=== PATIENT | female | born 1965 | race Caucasian/White ===

== ENCOUNTER 2018-12-24 05:29 | Inpatient (IN) | payer BC ==
[~2018-12-24] VITALS: Ht 152.4 cm; Wt 104.3 kg
[~2018-12-24 05:29] MED LIST: PROAIR HFA8.5 GM INH; ZOLOFT50 MG PO
[2018-12-24 07:37] LABS: HEMATOCRIT 41.3 % (37.0-47.0)
[2018-12-24 08:29] VITALS: BP 121/68
--- NOTE | 2018-12-24 08:47 | EKG ---
[address] [address] ELECTROCARDIOGRAM REPORT Name: SHON BOYCE Room #: 150-5 ADM IN M.R.#: [id number] ������������������ Admission: 12/24/18 ������������������ Attend Phys: Danelle Gross MD, Discharge: ������������������ Date of : 69 Report #: [id number] ����������������������������������������������������������������� [id number] THIS REPORT FOR: //name// [facility] Test Date: 2018-12-24 Test Time: 07:21:03 Pat Name: SHON BOYCE Department: Room: 150 5 Gender: F Oil Speculator: RODNEY : 1965 Requested By: Danelle Gross Order Number: [id number] MD: Stanislav Walton Measurements Intervals [place] Rate: 92 P: 55 MI: 177 QRS: 33 QRSD: 85 T: 6 QT: 339 QTc: 420 Interpretive Statements Sinus rhythm Normal tracing No previous ECG available for comparison Electronically Signed On 12-24-2018 8:46:48 TRANSCRIPT EVALUATOR by Stanislav Walton [email or web address] ��������������������������������������������� <ELECTRONICALLY SIGNED> ���������������������������������������� By: Stanislav Walton MD, [facility] ��������������������������������������������� 12/24/18 0846 0721 0 Stanislav Walton MD, FACC /EPI
[2018-12-24 13:24] VITALS: BP 134/73
--- NOTE | 2018-12-24 15:44 | NUR ---
ASSUMED CARE 1300, SHIFT ASSESSMENT DONE, ON DILAUDID SALES TEAM RECRUITER PUMP, TOLERAITNG PAIN WELL. TAM IN PLACE. WILL CONTINUE TO ASSESS AND ASSIST WITH ADLs NEEDED.
[2018-12-24 15:50] VITALS: BP 129/75
--- NOTE | 2018-12-24 18:47 | NUR ---
PAIN WELL CONTROLLED WITH VASCULAR ULTRASOUND TECHNOLOGIST PUMP. TAM PRODUCED 250 MLS OF YELLOW URINE. WILL CONTINUE TO ASSESS AND MONITOR.
[2018-12-24 19:30] VITALS: BP 115/67
[2018-12-25 00:30] VITALS: BP 108/66
[2018-12-25 04:00] VITALS: BP 108/48
[2018-12-25 06:12] LABS: HEMATOCRIT 35.5 % (37.0-47.0); MCH 27.4 pg (26.0-34.0); MCHC 32.8 g/dL (28.0-37.0); MCV 83.4 fL (80.0-100.0); RBC 4.25 mil/uL (4.20-5.00); RDW 13.5 % (10.5-14.5); WBC 12.5 thou/uL (4.0-11.0)
[2018-12-25 06:14] LABS: HEMOGLOBIN 11.6 gm/dL (12.0-15.0)
[2018-12-25 06:19] LABS: CALCIUM 8.9 mg/dL (8.5-10.1); CREATININE 0.8 mg/dL (0.6-1.0); POTASSIUM 4.6 mmol/L (3.5-5.1)
--- NOTE | 2018-12-25 06:27 | NUR ---
PT USING DIULADID TAPPER SHANK PUMP AND REPORTS FAIR RELIEF OF PAIN. AFEBRILE. LAP SITES LOOK OKAY. TAM TO D/D WITH GOOD U/O. IVF INFUSING.MIDLINE DRSG C/D/I WITH PREVENA.ON /, CAPNO IN PLACE THRO NOC. SATS ABOVE 94%.
--- NOTE | 2018-12-25 10:29 | NUR ---
ASSUMED CARE AT 0700, SHIFT ASSESSMENT DONE, MEDS GIVEN, VSS. ON THE OFFSET PRESS ASSISTANT PUMP, RATING PAIN 2/10. BREATHING RATE IS WITHIN LIMITS. TAM IN PLACE. WILL CONTINUE TO ASSESS AND ASSIST WITH ADLs NEEDED.
--- NOTE | 2018-12-25 12:08 | NUR ---
ASSESSMENT-PT LIVES AT HOME WITH HER IN A SPLIT LEVEL HOME. PT WAS INDEPENDENT OF ADLS AND AMBULATION PRIOR TO ADMISSION. PT WAS WORKING AND DRIVING WELL. SPOUSE IN [facility] AND ABLE TO ASSIST PT AT HOME NEEDED. PT VOICES NO CONCERNS NOR NEEDS AT DC AT THIS TIME. FOLLOWING TO ASSIST WITH DC PLANNING.
[2018-12-25 17:20] VITALS: BP 118/67
[2018-12-25 19:48] VITALS: BP 121/63
--- NOTE | 2018-12-26 00:49 | NUR ---
PT WAS OBSERVED GETTING OFF THE BSC AT START OF SHIFT.PT WAS ABLE TO VOID POST TAM REMOVAL.CONT ON DRYING MACHINE RECEIVER PUMP,CAPNOGRAPHY IN PLACE.PT ON 2L/NC,SAT ABOVE 95%. FAMILY BY HER BEDSIDE.CALL LIGHT WITHIN REACH.
[2018-12-26 04:55] VITALS: BP 135/77
[2018-12-26 05:10] LABS: ABSOLUTE NEUTROPHILS 6.2 thou/uL (1.4-8.2); BASOPHILS 0.2 % (0.0-2.0); EOSINOPHILS 2.3 % (0.0-3.0); HEMATOCRIT 34.9 % (37.0-47.0); HEMOGLOBIN 11.8 gm/dL (12.0-15.0); LYMPHOCYTES 18.4 % (24.0-44.0); MCH 28.2 pg (26.0-34.0); MCHC 33.7 g/dL (28.0-37.0); MCV 83.7 fL (80.0-100.0); MONOCYTES 6.6 % (1.0-8.0); PLATELET COUNT 254 thou/uL (150-400); POLYS 72.5 % (36.0-66.0); RBC 4.17 mil/uL (4.20-5.00); WBC 8.6 thou/uL (4.0-11.0)
[2018-12-26 05:20] LABS: CALCIUM 8.7 mg/dL (8.5-10.1); CREATININE 0.7 mg/dL (0.6-1.0); POTASSIUM 4.2 mmol/L (3.5-5.1)
[2018-12-26 08:15] VITALS: BP 123/67
--- NOTE | 2018-12-26 09:50 | NUR ---
ASSESMENT COMPLETED. VSS. A/O. PAIN MANAGED BY MEDS ORDERED. NO NOTED SOA. C/O NAUSEA MANAGED BY MEDS ORDERED. PREVENA INTACT. LAP SITES CLOSED WITH BEE- NOTED RED DRAINAGE ON LAPSITES. AMBULATED IN HALLWAY THIS AM WITH GOOD ENDURANCE. WILL CONT. TO MONITOR.
[2018-12-26 16:40] VITALS: BP 179/109
[2018-12-26 17:20] VITALS: BP 151/84
[2018-12-26 19:37] VITALS: BP 148/88
--- NOTE | 2018-12-27 03:07 | NUR ---
MINCING MACHINE OPERATOR PUMP STILL IN PLACE WITH CAPNOGRAPHY,PT RARELY USES IT.PT REFUSED HER PO PAIN MED WHEN IT WAS OFFERED,UP TO BSC WITH ASSIST X1.PT STILL TOLERATING CLEAR LIQUIDS WELL.FAMILY AT BEDSIDE.CALL LIGHT WITHIN REACH.
[2018-12-27 04:41] VITALS: BP 139/72
[2018-12-27 05:18] LABS: ABSOLUTE NEUTROPHILS 8.1 thou/uL (1.4-8.2); BASOPHILS 0.6 % (0.0-2.0); EOSINOPHILS 3.5 % (0.0-3.0); HEMATOCRIT 37.4 % (37.0-47.0); HEMOGLOBIN 12.4 gm/dL (12.0-15.0); LYMPHOCYTES 14.2 % (24.0-44.0); MCH 27.8 pg (26.0-34.0); MCHC 33.2 g/dL (28.0-37.0); MCV 83.9 fL (80.0-100.0); MONOCYTES 5.9 % (1.0-8.0); POLYS 75.8 % (36.0-66.0); RBC 4.45 mil/uL (4.20-5.00); RDW 13.4 % (10.5-14.5); WBC 10.6 thou/uL (4.0-11.0)
[2018-12-27 05:20] LABS: PLATELET COUNT 345 thou/uL (150-400)
[2018-12-27 05:24] LABS: CALCIUM 9.1 mg/dL (8.5-10.1); CREATININE 0.7 mg/dL (0.6-1.0); POTASSIUM 4.1 mmol/L (3.5-5.1)
--- NOTE | 2018-12-27 12:42 | NUR ---
ASSUMED CARE THIS AM, SHIFT ASSESSMENT DONE, MEDS GIVEN. AIR SURVEILLANCE OPERATOR PUMP HAS BEEN DISCONTINUED. RATES PAIN AT /10. UP TO THE BED SIDE COMMODE WITH ASSIST. DENIES NAUSEA, VOMITING. WILL CONTINUE TO ASSESS AND ASSIST WITH ADLs NEEDED.
--- NOTE | 2018-12-27 14:46 | NUR ---
RECEIVED PT FROM . PT ALERT/ORIENTED X4. REPORTS PAIN RATED 3/10. DENIES NEED FOR MEDICATION AT THIS TIME. NO N/V. DRESSING TO ABD IS CDI. PT REPORTS SOME STIRRING IN HER STOMACH BUT NOT PASSING GAS YET. IV TO RIGHT HAND WAS FOUND TO BE INFILTRATED. NEW IV STARTED TO LEFT FOREARM AND FLUIDS RESTARTED.
[2018-12-27 15:08] VITALS: BP 144/88
[2018-12-27 20:01] VITALS: BP 122/69
--- NOTE | 2018-12-28 04:10 | NUR ---
ASSUMED CARE OF PATIENT AT 190. VSS. ASSESSMENT COMPLETED AT 2044 AND IS DOCUMENTED. RIGHT HAND REMAINS SWOLLEN AFTER PIV INFILTRATION. LEFT FA PIV PATENT AND INFUSING D5W 1/2NS WITH 20 MEQ KCL @ 125ML/HR PER DR ORDER. IVF INFUSING WITHOUT COMPLICATION. PT C/O ABDOMINAL PAIN THROUGHOUT THE NIGHT. PRN TRAMADOL GIVEN WITH DESIRE EFFECT ACHIEVED. PT CURRENTLY SLEEPING SOUNDLY IN BED IN NO ACUTE DISTRESS. CALL LIGHT WITHIN REACH. BED LOCKED AND IN LOWEST POSITION. WCTM.
[2018-12-28 07:15] VITALS: BP 133/70
--- NOTE | 2018-12-28 11:08 | NUR ---
ASSUMED CARE OF PATIENT THIS MORNING. PATIENT IS A&OX4. SHE IS UP AD HAZEL. NO COMPLAINTS OF PAIN. NO LABS TODAY. SHE HAS 3 LAP SITES W/ PREVENA DRESSING. SHE IS ON A FULL LIQUID DIET. LEFT FOREARM IV W/D5W 0.45 NS KCL 20 MEQ/1000 RUNNING @ 125ML/HR. PATIENT HAS HYPOACTIVE BOWEL MOVEMENTS, LAST BOWEL MOVEMENT WAS 12/27/18. PATIENT HAS HAD SOME WEAKNESS, BUT FEELS STRONGER TODAY AND ABLE TO AMBULATE IN THE HALLWAY WITH IV POLE AND GET AROUND BETTER IN HER ROOM. WILL CONTINUE TO MONITOR PATIENT FOR PAIN AND ASSESS ABDOMINAL SITE.
--- NOTE | 2018-12-28 13:54 | NUR ---
I AGREE WITH NURSING ASSESSMENT DONE BY DEMARCO/LIS.
[2018-12-28 19:31] VITALS: BP 132/72
--- NOTE | 2018-12-29 04:48 | NUR ---
ASSUMED CARE OF PATIENT AT 1900. VSS. ASSESSMENT COMPLETED AT 2021 AND IS DOCUMENTED. PREVANA DRSG C/D/I. SKIN IS WARM TO TOUCH ON RLQ OF ABDOMEN. ORDER FOR PRN SIMETHICONE OBTAINED FROM DR. HALEY D/T PT'S C/O GAS PAIN. ADMINISTERED X1 WITH DESIRED EFFECT ACHIEVED. PT IS UP AD HAZEL TO BATHROOM WITHOUT DIFFICULTY. PRN TRAMADOL GIVEN X1 FOR C/O ABD PAIN WITH DESIRED EFFECT ACHIEVED. LEFT FA PIV INFUSING IVF WITHOUT COMPLICATION. PT SLEPT SOUNDLY THROUGHOUT THE NIGHT. NO ACUTE DISTRESS NOTED OR REPORTED. PT CALLS OUT APPROPRIATELY. BED LOCKED AND IN LOWEST POSITION. WCTM.
--- NOTE | 2018-12-29 05:03 | NUR ---
THIS NURSE AGREES WITH ASSESSMENT AND NOTES BY VACUUM SPINDLE SANDER ON THIS PATIENT.
[2018-12-29 07:23] VITALS: BP 125/61
--- NOTE | 2018-12-29 10:39 | NUR ---
ASSUMED CARE OF PATIENT THIS MORNING. PATIENT IS A&OX4. SHE IS UP AD HAZEL. SHE HAS 3 LAP SITES WHICH ARE C/D/I. RIGHT FOREARM IV WITH D5W 0.45% NS KCL 20MEQ 1000ML @ 125ML/HR. SHE COMPLAINS OF 1/10 PAIN IN HER ABDOMEN AND RECEIVES TRAMADOL Q6H, SHE HAS NOT RECEIVED ANY PAIN MEDICATION TODAY AND DOES NOT CURRENTLY WANT ANY. SURGEON DOES NOT WANT TO DISCHARGE PATIENT UNTIL SHE HAS A BOWEL MOVEMENT, LAST BOWEL MOVEMENT WAS 12/27/18. PATIENT IS ONLY CURRENTLY PASSING FLATUS. SHE IS CURRENTLY LYING IN BED, WITH CALL LIGHT WITHIN REACH. SHE CALLS OUT APPROPRIATELY FOR ANY NEEDED ASSISTANCE.
--- NOTE | 2018-12-29 14:13 | NUR ---
I AGREE WITH NURSING ASSESSMENT DONE BY DEMARCO/LIS.
[2018-12-29 19:18] VITALS: BP 134/74
--- NOTE | 2018-12-30 05:54 | NUR ---
PATIENT ALERT AND ORIENTED X4. UP IN HALLS WITH SO. SO HERE ALL NIGHT. RATES PAIN AT 2. DRESSING MID ABD D/I. HAS 3 SMALL INCISIONS ON ABD WITH BEE. NO SIGN OF DRAINAGE, REDNESS OR TENDERNESS NOTED. INSTRUCTED PATIENT TO DRINK A HOT BEVERAGE AND TO WALK TO PERCIPITATE A BM. SHE DRANK HOT TEA AND WENT FOR A WALK. PATIENT HAD TWO BM'S. INSTRUCTED PATIENT THE NEED TO DO HER IS AND TO COUGH AND DEEP BREATHE. SLEPT MOST OF NIGHT.
[2018-12-30 07:05] VITALS: BP 146/81
--- NOTE | 2018-12-30 10:47 | NUR ---
ASSUMED CARE OF PATIENT THIS MORNING. PATIENT IS A&OX4. SHE IS UP AD AHZEL. PATIENT HAS 3 LAP SITES W/PREVENA DRAIN, DRESSING IS C/D/I. NO ABNORMAL ASSESSMENT FINDINGS. SHE RECEIVED TRAMADOL FOR PAIN 01/19, WHEN REASSESSED PAIN WAS 11/21. SHE WILL BE DISCHARGED SOMETIME LATER THIS MORNING. 1 PRESCRIPTION WILL BE CALLED INTO HER PHARMACY. 2 ABDOMINAL BINDERS WERE ORDERED FOR PATIENT TO APPLY TO HER LAP SITE. IV DC'D. PATIENT IS CURRENTLY SITTING IN BED WITH CALL LIGHT WITHIN REACH. PATIENT CALLS OUT APPROPRIATELY FOR ASSISTANCE.
[2018-12-30 10:54] VITALS: BP 146/81
--- NOTE | 2018-12-31 16:06 | PATH ---
[facility] [place] [address] PATHOLOGY RPT PROCEDURE Name: SHON BOYCE Erika Room #: 220-P [facility] IN M.R.#: [id number] ������������������ Admission: 12/24/18 ������������������ Date of : 69 Discharge: 12/30/18 Report #: [id number] Path Case #: [id number] [facility] Accession Number: [id number] . 01 Material submitted: . PART A: SUPERIOR RECTUM AND SIGMOID PART B: ANASTOMOTIC EDGE PART C: ANASTOMOTIC SITE/RINGS . 01 Clinical history: . Colon polyp . 02 Diagnosis: A. Large intestine, superior rectosigmoid, resection: - 1.8 cm polyp showing tubular adenoma without high grade dysplasia. - Remainder of polyps measuring 1.5 and 1.9 cm showing inflamed hyperplastic polyps without dysplasia. - Mild diverticulosis identified in the background. - Seventeen reactive lymph nodes identified in the adipose tissue (0/17). - Margins of resection unremarkable. . B. Large intestinal mucosa, anastomotic edge: - Reactive changes and no diagnostic abnormalities. . C. Large intestinal mucosa, anastomotic site: - Reactive changes and no diagnostic abnormalities. LBQ/12/27/2018 . 02 Comment: ER immunohistochemical stain is ordered on block A4 and the findings will be reported in an addendum to follow. (IUV/db; 12/27/2018) . 02 Addendum: . This addendum is issued subsequent to reviewing a properly controlled ER immunohistochemical stain performed on block A4. The stain is strongly reactive within the glands and stromal cells identified amidst the muscularis propria. These findings support endometriosis. This was communicated to Dr. Danelle Gross in the morning of 12/31/2018. (IUV:margaret; 12/31/2018) . . Professional services performed by [facility] at [facility], [address] [place] [address] [address], [place] [address]. Technical services performed by [facility] at [address] [place] [address], [address], [place] [address]. S/12/31/2018 Addendum Electronically Signed by Enma Rene MD, Pathologist [facility] [address] [place] [address] PATHOLOGY RPT PROCEDURE Name: SHON BOYCE Room #: 220-P DIS IN M.R.#: [id number] ������������������ Admission: 12/24/18 ������������������ Date of : 69 Discharge: 12/30/18 Report #: [id number] Path Case #: [id number] . 02 Electronically signed: . Enma Rene MD, Pathologist NPI- [id number] . 01 Gross description: . A. The specimen is received in formalin, labeled "[place]on [place], superior rectum and sigmoid, suture randle distal". Received is an oriented segment of colon measuring 8.8 cm in length and ranges in diameter from 2.5 to 3.2 cm. Both margins are stapled closed and sutures are present at one margin designating this as the distal aspect. The serosal surface is pink-acuña and shaggy in appearance, and is predominantly fat wrapped. The attached pericolic fat measures up to 4.5 cm in thickness. The mesenteric margin is inked orange. The specimen is opened along the antimesenteric line to reveal three pink-fung polypoid-appearing lesions measuring 1.5 x 0.9, 1.8 x 1.4, and 1.9 x 1.3 cm. These lesions are 3.7 cm from the proximal margin and 2.9 cm from the distal margin. The serosal and fatty surfaces are inked black. Sectioning through all three polyps reveals confinement to the mucosa with no gross extension through the muscularis propria into the underlying soft tissue. The remainder of the colonic mucosa is light fung with minimal architectural folding; a large amount of tattooing is present. Dissection and palpation of the attached pericolic fat reveals 13 readily identifiable lymph nodes ranging in size from 0.1 to 0.6 cm in maximum dimensions. The specimen is submitted representatively as follows: . A1 proximal margin, en face A2 distal margin, en face A3 perpendicular section through mesenteric margin A4-A6 entire larger polyp A7-A9 entire second polyp A10-A12 entire smaller polyp A13 uninvolved mucosa with tattooing A14-A15 intact lymph nodes A16-A17 two bisected lymph nodes in each cassette, differentially inked. . B. The specimen is received in formalin, labeled "[place]on [place], anastomotic edge". Received is a segment of light fung to light brown mucosa measuring 3.4 x 0.7 x 0.6 cm in greatest dimensions with a staple line present. The specimen is submitted representatively in cassette B1. . C. The specimen is received in formalin, labeled "[place]on [place], anastomotic rings". Received is a circular segment of light fung mucosa measuring 2.0 x 1.5 x 1.1 cm as well as a linear ragged segment of light fung mucosa measuring 3.9 x 1.0 x 0.6 cm in greatest dimensions. Respiratory Scientist sections from the circular segment are submitted in cassette C1. Respiratory Scientist sections of the linear segment are submitted in cassette C2. [address] [address] PATHOLOGY RPT PROCEDURE Name: TERRY BOYCEEY Erika Room #: 220-P [facility] IN [facility].#: [id number] ������������������ Admission: 12/24/18 ������������������ Date of : 69 Discharge: 12/30/18 Report #: [id number] Path Case #: [id number] (CAA; 12/26/2018) QAC/QAC . 02 Pathologist provided ICD-10: D12.7, K63.5, K57.30 . 02 CPT . 481441, 672701, 335174, J11681 Specimen Comment: A courtesy copy of this report has been sent to Specimen Comment: [phone], . Specimen Comment: Report sent to / DR BANUELOS Specimen Comment: A duplicate report has been generated due to demographic updates. Performed at: 01 [facility] [address] [facility] [address], [place] [id number] MD Alli Zuleta MD Phone: [phone] Performed at: 02 [facility] [place] [address] [place], [place] [id number] MD Enma Rene MD Phone: [phone]
--- NOTE | 2019-01-23 09:06 | O ---
[facility] [place] [address] [address] [place] [address] OPERATIVE REPORT Name: SHON BOYCE Erika Room #: 220-P [facility] IN M.R.#: [id number] Admission: 12/24/18 ������������������ Attend Phys: Danelle Gross MD, Discharge: 12/30/18 ������������������ Date of : 69 Report #: [id number] THIS REPORT FOR: //name// CC: Danelle Menard DATE OF SERVICE: 12/24/2018 PREOPERATIVE DIAGNOSIS: Unresectable sigmoid adenoma. POSTOPERATIVE DIAGNOSES: 1. Unresectable high rectal/low sigmoid mass. 2. Significant pelvic adhesions from the mass to the uterus and bilateral adnexa. PROCEDURES PERFORMED: 1. Laparoscopic converted to open low anterior resection with a stapled low coloproctostomy. 2. Mobilization of the splenic flexure. 3. Extensive lysis of pelvic adhesions. SURGEON: Danelle Gross M.D. BICYCLE MESSENGER: LISET Gonzalez ANESTHESIA: General endotracheal anesthesia. ESTIMATED BLOOD LOSS: Minimal (less than 20 mL). COMPLICATIONS: None appreciated. SPECIMENS: Superior rectum/distal sigmoid colon resection specimen to pathology with suture marking distal. INDICATIONS: The patient is a 53-year-old obese female who presented after colonoscopic findings of an unresectable sigmoid mass consistent with a serrated adenoma. As this was near circumferential and unresectable, indication was for sigmoid colectomy with intraoperative findings of marked pelvic adhesions, requiring conversion to an open procedure. DESCRIPTION OF PROCEDURE: After explaining the risks, benefits and alternatives of the procedure with the patient in detail in the preoperative holding area and obtaining written consent, the patient was brought to the operating room and placed supine on the operating room table. After conducting a thorough timeout procedure verifying correct patient and procedure, the patient was given general endotracheal anesthesia. Once adequate anesthesia was attained, SCDs were [facility] [address] [place] [address] OPERATIVE REPORT Name: SHON BOYCE Room #: 220-P DIS IN ..#: [id number] Admission: 12/24/18 ������������������ Attend Phys: Danelle Gross MD, Discharge: 12/30/18 ������������������ Date of : 69 Report #: [id number] hooked up to the patient's lower extremities and she was given a preoperative dose of antibiotics in line with the SCIP protocol. The patient's abdomen was now prepped and draped in a standard surgical sterile fashion after positioning her in the low lithotomy position with her legs in the Yellofin stirrups. A 5 mL of 0.5% Marcaine with epinephrine were used to anesthetize the skin in the right upper quadrant 2 cm cephalad to the umbilicus and 2 cm to the patient's right. A #15 bladed scalpel was used to create a small skin saba at this location. A 5 mm Visiport was placed over 0 degree 5 mm laparoscope and was introduced through this incision site. Once intra-abdominal placement was verified visually, the obturator for the trocar and laparoscope were both removed and the abdomen was insufflated to 15 mmHg using carbon dioxide gas. The laparoscope was changed to a 5-mm 30-degree laparoscope, which was reintroduced through this trocar. The entire abdomen was evaluated to ensure no injury upon entry. I now placed two additional 5 mm working ports. One was placed in left upper quadrant, one in the right lower quadrant, both under direct vision after anesthetizing the skin at each location with 5 mL of 0.5% Marcaine with epinephrine and I created small skin nicks using #15 blade scalpel. The patient was placed in Trendelenburg position with the left side elevated and I attempted to dissect out the sigmoid colon. It was immediately evident that this was plastered to the bilateral adnexa and uterus as well as a pelvic sidewall to the point where it was going to be impossible to resect this laparoscopically, especially since the colon itself was firm and fibrotic and unable to be grasped with laparoscopic graspers. I therefore made the decision to convert to an open procedure and desufflated the abdomen and immediately removed all trocars. I now made a longitudinal lower midline incision using #10 bladed scalpel from the suprapubic location to the infraumbilical location. Electrocautery was used to carry this down through skin and subcutaneous tissues to ensure hemostasis until I arrived upon the fascia, which was scored vertically and a finger was placed in the abdomen to facilitate opening the entire abdominal wound and prevent injury to the underlying structures. The Omni retractor was now placed in standard fashion and body wall retractors were applied. A rake was used to sweep the small bowel into the upper abdomen covered with a lap pad to protect the bowels. I now completed extensive pelvic lysis of adhesions with electrocautery and Metzenbaum scissor dissection to free the colon from the uterus as well as bilateral adnexal structures and the pelvic sidewall. Once this had been performed, I was able to identify the tattooing, which was applied both proximally and distally and showed that the mass itself was actually a high rectal mass. The perirectal tissues were scored with electrocautery and a finger was passed through the mesorectum. A contour green load stapler was now utilized to transect the rectum at the mid rectal tissues where it was appearing to be healthy. The staple line was elevated with an Allis clamp and I proceeded to take down the mesenteric root in a proximal fashion with an EnSeal X1 device for hemostasis. This was carried out until I was proximal to the proximal tattoo where the bowel appeared healthy. Evaluating the bowel at this juncture showed that this was not going to leave enough length to have a tension-free anastomosis and as such, I mobilized the [facility] [address] [place] [address] OPERATIVE REPORT Name: SHON BOYCE Room #: 220-P [facility] IN [facility].#: [id number] Admission: 12/24/18 ������������������ Attend Phys: Danelle Gross MD, Discharge: 12/30/18 ������������������ Date of : 69 Report #: [id number] entire right colon along the white line of Toldt with electrocautery. I also mobilized the splenic flexure all the way up over the splenic flexure to allow significant length to the colon to drop down in the pelvis. I now elevated the colon and applied an auto pursestring suture device in standard fashion at the point of transection and removed the bowel with curved Constantino scissors and passed it off the field. The auto pursestring suture device was removed, the open end of bowel was elevated between 3 Allis clamps and we sized the bowel showing an appropriate 33 EEA size. The rectum was markedly dilated already and able to handle a 33 EEA as well. The anvil for the 33 EEA stapler was then placed in the open end of colon and the suture was tied down around it. The rectal stump was then dilated and the 33 EEA stapler was placed up the rectal stump and the spike was passed through the end of the staple line and then was mated to the anvil. The stapler was ratcheted down in standard fashion, ensuring no twisting to the colon and was fired. When the stapler was removed, we had two circumferential concentric beefy anastomotic rings. The bowel was then clamped proximal to the anastomosis and pelvis was filled with normal saline and a rigid proctoscope was placed up the rectum and full insufflation showed no evidence of bubbling, thereby signifying a negative leak test. The proctoscope was removed. The normal saline was suctioned out and it ran clear throughout. I then irrigated the entire abdomen with one additional liter of normal saline, which ran clear. I then closed the midline fascial wound using looped #1 PDS suture in standard running fashion. The wound was irrigated and closed with skin lacey and a Prevena topical wound VAC was applied. At the end of the procedure, all instrument, needle and sponge counts were correct. The patient tolerated the procedure without incident, was awakened in the operating room and transitioned to the recovery room in stable condition with no apparent complications. ��������������������������������������������� <ELECTRONICALLY SIGNED> ���������������������������������������� By: Danelle Gross MD, FACS ��������������������������������������������� 01[birth year]1906 1728 20 Danelle Gross MD, FACS /nt
== END 2018-12-30 12:37 | disposition home or self-care (01) | DRG 330 ==
LOC: 4E 05:29 → TBA 05:29 → OR 08:55 → EDSTATUS 08:58 → PRE 09:06 → 4E 13:07 → SICU 12-27 14:33 → ENTRNSPT 12-30 11:12 → EDTRNSPTSTS 12-30 11:14 → SICU 12-30 12:37
PROVIDERS: ADMIT Surgery
DX: D12.5 Benign neoplasm of sigmoid colon (principal); Z68.41 Body mass index [BMI] 40.0-44.9, adult; K63.5 Polyp of colon; N73.6 Female pelvic peritoneal adhesions (postinfective); F41.9 Anxiety disorder, unspecified; E66.01 Morbid (severe) obesity due to excess calories; Z82.49 Family history of ischemic heart disease and other diseases of the circulatory system; Z86.010 Personal history of colon polyps
CPT/HCPCS: 10783; 15002; 50010; 50093; 50101; 50249; 50290; 50386; 50455; 50525; 50555; 50804; 50953; 51398; 51412; 51489; 51712; 52265; 53307; 54022; 54118; 56462; 56525; 56526; 56527; 56530; 56753; 57092; 62110; 62900; 70005